=== PATIENT | male | born 1960 | race African-American/Black ===

== ENCOUNTER 2017-01-13 20:57 | Emergency (ER) | payer MEDICAID ==
[~2017-01-13] VITALS: Ht 172.7 cm; Wt 79.7 kg
[2017-01-13 22:30] VITALS: BP 142/92
== END 2017-01-13 22:34 | disposition home or self-care (01) ==
LOC: ED 21:48
DX: T63.441A Toxic effect of venom of bees, accidental (unintentional), initial encounter (principal); Y92.9 Unspecified place or not applicable
CPT/HCPCS: 99283